=== PATIENT | female | born 1980 | race Caucasian/White ===

== ENCOUNTER 2024-01-11 21:47 | Emergency (ER) | payer BC ==
[~2024-01-11] VITALS: Ht 165.1 cm; Wt 47.2 kg
[2024-01-11] MEDS ORDERED: ENSKYCE 28 TAB1 EACH PO (22:04)
[2024-01-11] MEDS ORDERED: ASPIRIN ADULT L81 M2 PO (22:04)
[2024-01-11] MEDS ORDERED: METRONIDAZOLE250 M1 PO (22:04)
[2024-01-11] MEDS ORDERED: MIRTAZAPINE15 M2 PO (22:04)
== END 2024-01-11 23:55 | disposition home or self-care (01) ==
LOC: ED 21:47
DX: B34.9 Viral infection, unspecified (principal); Z20.822 Contact with and (suspected) exposure to COVID-19; Z88.1 Allergy status to other antibiotic agents; Z79.899 Other long term (current) drug therapy; Z79.82 Long term (current) use of aspirin; Z90.49 Acquired absence of other specified parts of digestive tract

== ENCOUNTER 2025-05-07 09:47 | Emergency (ER) | payer BC ==
[~2025-05-07] VITALS: Ht 165.1 cm; Wt 47.6 kg
[~2025-05-07 09:47] MED LIST: ASPIRIN ADULT L81 M2 PO; ENSKYCE 28 TAB1 EACH PO; METRONIDAZOLE250 M1 PO; MIRTAZAPINE15 M2 PO
[2025-05-07] MEDS ORDERED: METHOCARBAMOL 750 MG TAB PO ONE (11:25)
[2025-05-07] MEDS ORDERED: Acetaminophen/Oxycodone 5 MG/325 MG TABLET PO ONE (11:25)
[2025-05-07] MEDS ORDERED: Water, Sterile 10 ML VIAL ONE (12:09)
[2025-05-07] MEDS ORDERED: NAPROSYN500 MG PO (13:10)
[2025-05-07] MEDS ORDERED: PREDNISONE50 MG PO (13:10)
[2025-05-07] MEDS ORDERED: METHOCARBAMOL750 M1 PO (13:10)
== END 2025-05-07 13:28 | disposition home or self-care (01) ==
LOC: ED 09:47
DX: M25.811 Other specified joint disorders, right shoulder (principal); M54.2 Cervicalgia; M54.6 Pain in thoracic spine; R20.0 Anesthesia of skin; Z88.1 Allergy status to other antibiotic agents; Z90.49 Acquired absence of other specified parts of digestive tract